=== PATIENT | male | born 1965 | race Caucasian/White ===

== ENCOUNTER 2017-06-13 02:41 | Day surgery (SDC) | payer BC, OTHER ==
[2013-10-07 09:10] VITALS: Ht 188 cm; Wt 122.9 kg
[2017-06-13] VITALS (7 sets, daily range): BP systolic 110–141; BP diastolic 77–94
[~2017-06-13] VITALS: Ht 188 cm; Wt 122.9 kg
[~2017-06-13 02:41] MED LIST: ANTIDEPRESSANT PO; BACDS PO; BUPR-472 PO; CIT20 PO; CYC10 PO; DIA5 PO; DUL20 PO; EPIN0.3P14 IM; ESZO1TAB16 PO; GAB300 PO; HYDR-2954 PO; HYDR-3074 PO; HYDR-4309 PO; HYDR100C9 PO; HYDR50CA47 PO; KET10 PO; LISI-349 PO; LISI-362 PO; MIRT-1 PO; MULT1CAP59 PO; OMEP40CA79 PO; OXYC-689 PO; PRAZ2CAP26 PO; QUET25TA30 PO; QUET50TA21 PO; TRA50 PO; ZOLM5 PO
[2017-06-13] MEDS ORDERED: PROPOFOL EMUL(*) 10MG/ML 20 ML 60 ML ONE (06:46)
[2017-06-13] MEDS ORDERED: LIDOCAINE MPF 1% 5 ML VIAL ONE (06:46)
--- NOTE | 2017-06-13 07:17 | Post Operative Progress Note ---
Post Operative Progress Note Date: Jun 13, 2017 Time: 09:26 Surgeon: lyle Anesthesia: dr begum Pre-Op Diagnosis: rectal bleeding Post-Op Diagnosis: normal exam Procedure(s): colonoscopy MOSES CUENCA MD Jun 13, 2017 07:17
--- NOTE | 2017-06-13 07:18 | Short(Outpt) Discharge Summary ---
Discharge Summary Reason for Hosp/Final Diag: (1) Rectal bleeding Hospital Course & Plan: normal colonoscopy Departure Discharge to: Home Discharge Instructions Home Meds Active Scripts Lisinopril (LISINOPRIL) 10 Mg Tablet, 10 MG PO QDAY, #30 0 Refills Prov:MERCY ROSAS MD 07/28/13 Reported Medications Prazosin Hcl (PRAZOSIN HCL) 2 Mg Capsule, 4 MG PO DAILY, CAPSULE Take at bedtime. 10/06/13 Hydroxyzine Pamoate (VISTARIL) 50 Mg Capsule, 50-100 MG PO Q4H Y for AGITATION, CAPSULE 10/06/13 Bupropion Hcl (WELLBUTRIN XL) 150 Mg Tab.er.24h, 300 MG PO QDAY, TAB TAKE 1 TABLET BY MOUTH EVERY MORNING. 10/06/13 Epinephrine (Epipen) 0.3 Mg/0.3/Syringe Pen.injctr, 0.3 MG IM DIRECTED Y for bee/wasp sting 10/26/11 Zolmitriptan (Zomig) 5 Mg Tab, 5 MG PO PRN, #20 May repeat in one (1) hour, one time. Do not exceed two (2) tabs in 24 hours. 10/26/11 Mirtazapine (Mirtazapine) 15 Mg Tablet, 45 MG PO QHS, #30 0 Refills take one tablet at bedtime 05/18/11 Discontinued Reported Medications Quetiapine Fumarate (SEROQUEL) 25 Mg Tablet, 25 MG PO Q6H Y for AGITATION 10/09/13 Quetiapine Fumarate (SEROQUEL) 50 Mg Tablet, 50 MG PO HS 10/09/13 Multivitamin (MULTIVITAMINS) 1 Each Capsule, 1 EACH PO DAILY, CAPSULE 10/09/13 Discontinued Scripts Hydrocodone Bit/Acetaminophen (NORCO 5-325 TABLET) 1 Each Tablet, 1 EACH PO Q4- 6H Y for PAIN, #20 TAB Prov:LULA SIFUENTES 07/14/15 Diet: Regular Activity: As Tolerated MOSES CUENCA MD Jun 13, 2017 07:18
[2017-06-13] MEDS ORDERED: LIDOCAINE/SOD BICARB 8.4% SYR ID ONE (08:00)
[2017-06-13] MEDS ORDERED: NORMOSOL R SOLN(*) 1000 ML BAG 1,000 ML IV PRN (08:00)
--- NOTE | 2017-06-13 15:19 | OPERATIVE REPORT 1 ---
EVENT DATE: June 13, 2017 SURGEON: Rogelio Sullivan MD ANESTHESIOLOGIST: Maynor Velasquez MD ANESTHESIA: Sedation. PREOPERATIVE DIAGNOSIS Rectal bleeding. POSTOPERATIVE DIAGNOSIS Normal-appearing colonoscopic examination. PROCEDURE PERFORMED Colonoscopy. DESCRIPTION OF PROCEDURE The patient was placed in the left lateral decubitus position and given intravenous sedation. Perianal examination showed no prolapsing or thrombosed hemorrhoids. No external hemorrhoids. He appeared to have a healed posterior anal fissure, but there was no active fissure to my visualization. The digital exam was unremarkable. I could not palpate any masses or abnormalities in the sphincter. A flexible colonoscope was inserted and advanced to the cecum. He had an excellent bowel prep. Ileocecal valve and base of the cecum were identified. The scope was slowly withdrawn. Care was taken to look behind the haustral folds. No abnormalities were noted in the cecum, right colon, transverse, descending, or sigmoid colon. Rectum was normal. The scope was retroflexed. He did not have any enlarged hemorrhoids, so no rubber banding was done. The patient tolerated the procedure well. No apparent complications. [facility]
== END 2017-06-13 10:51 | disposition home or self-care (01) ==
LOC: OR 02:41
PROVIDERS: ATTEND Surgery
DX: K62.5 Hemorrhage of anus and rectum (principal)
CPT/HCPCS: 00811; 45378; J2001; J2704

== ENCOUNTER → 2018-04-11 | Outpatient (CLI) | payer BC ==
[2013-10-07 09:10] VITALS: BMI 32.7
[~2018-04-11] MED LIST changes: -HYDR-4309 PO; +HYDR-653 PO
--- NOTE | 2018-04-11 10:48 | RADIOLOGY IMAGING REPORT ---
FACILITY: [facility] PATIENT NAME: Fred Curiel : 1965 MR: [id number] V: [id number] EXAM DATE: ORDERING PHYSICIAN: DARCI ROJAS TECHNOLOGIST: Location: [facility] [place] Patient: Fred Curiel : 1965 Visit/Account:[id number] Date of Sevice: 04/11/2018 Exam type: CHEST PA LAT History: Shortness of breath, difficulty breathing, productive cough, malaise x1 week Comparison: August 10, 2015 Findings: The lungs are free of acute effusions, infiltrates or edema. The cardiac silhouette is normal in siz e. The trachea is in midline. Visualized bones are unremarkable for age.. IMPRESSION: 1. No acute cardiopulmonary process is seen Report Dictated By: Jacquelyn Dao MD at 04/11/2018 10:41 AM Report E-Signed By: Jacquelyn Dao MD at 04/11/2018 10:43 AM WSN:[email or web address]
== END ==
LOC: RAD 10:07
PROVIDERS: ATTEND Family Medicine
DX: R05 Cough (principal)
CPT/HCPCS: 71046